=== PATIENT | male | born 1975 | race Caucasian/White ===

== ENCOUNTER 2017-03-11 13:30 | Emergency (ER) | payer SELFPAY ==
[~2017-03-11] VITALS: Ht 190.5 cm; Wt 124.0 kg
[2017-03-11 14:12] LABS: MCH 29.3 PG (29.0-34.0); MCHC 32.9 G/DL (30.0-36.0); MCV 89.1 FL (86-99); MEAN PLAT.VOLUME 11.2 uM^3 (9.0-12.4); PLATELET COUNT 278 K/uL (156-360); RBC DIS.WIDTH-CV 13.2 % (11.8-14.6); RBC DIS.WIDTH-SD 43.3 % (39-53); WHITE BLOOD COUNT 18.1 K/uL (4.1-10.2)
[2017-03-11 14:14] LABS: ADD MIUA? YES; BILIRUBIN NEGATIVE; BLOOD MODERATE; COLOR YELLOW ((YELLOW)); GLUCOSE (STRIP) NEGATIVE; KETONES 5; LEUKOCYTES NEGATIVE; NITRITE NEGATIVE; PROTEIN (STRIP) NEGATIVE; UROBILINOGEN 0.2 MG/DL (0.2-1.0)
[2017-03-11 14:18] LABS: BACTERIA RARE /HPF; CALCIUM OXALATE CRYSTALS 2+ /HPF; EPITHELIAL CELLS RARE /HPF; MUCUS TRACE /LPF; RED BLOOD CELLS TNTC /HPF (0-5); UCUL ADDED? YES; WHITE BLOOD CELLS 0-5 /HPF (0-5)
[2017-03-11 14:19] LABS: CHLORIDE 104 mEq/L (99-109); POTASSIUM 4.7 mEq/L (3.7-5.4); SODIUM 140 mEq/L (136-147)
[2017-03-11 14:21] LABS: GLUCOSE 146 mg/dL (70-99)
[2017-03-11 14:22] LABS: ANION GAP 11 MEQ/L (2-14)
[2017-03-11 14:25] LABS: UREA NITROGEN (BUN) 12 mg/dL (9-23)
[2017-03-11 14:26] LABS: GFR ESTIMATE (CALCULATED) > 59 mL/min/
[2017-03-11] MEDS ORDERED: NORCO 5/3251 TABLET PO (16:44)
[2017-03-11] MEDS ORDERED: ZOFRAN ODT8 MG PO (16:44)
[2017-03-11 17:00] VITALS: BP 165/99
== END 2017-03-11 17:02 | disposition home or self-care (01) ==
LOC: EME 13:30
DX: R10.31 Right lower quadrant pain (principal); R11.2 Nausea with vomiting, unspecified; N13.2 Hydronephrosis with renal and ureteral calculous obstruction; F17.200 Nicotine dependence, unspecified, uncomplicated
CPT/HCPCS: 74176; 80048; 81003; 85027; 87086; 99281; 99284